=== PATIENT | male | born 1965 | race Two or more races ===

== ENCOUNTER 2021-01-22 19:00 | Emergency (ER) | payer SELFPAY ==
[2021-01-22] MEDS ORDERED: NAPROXEN500 MG PO (20:59)
== END 2021-01-22 22:05 | disposition home or self-care (01) ==
LOC: FER 19:00
DX: S46.912A Strain of unspecified muscle, fascia and tendon at shoulder and upper arm level, left arm, initial encounter (principal); X50.9XXA Other and unspecified overexertion or strenuous movements or postures, initial encounter
CPT/HCPCS: 73020; 96372; J1100; J1885

== ENCOUNTER 2021-01-27 21:05 | Emergency (ER) | payer OTHER ==
[~2021-01-27 21:05] MED LIST: NAPROXEN500 MG PO
[2021-01-28] MEDS ORDERED: ETODOLAC300 MG PO (00:05)
[2021-01-28] MEDS ORDERED: CYCLOBENZAPRINE10 MG PO (00:05)
[2021-01-28] MEDS ORDERED: NORCO 5-325 TA1 EACH PO (00:05)
== END 2021-01-28 00:49 | disposition home or self-care (01) ==
LOC: FER 21:05
DX: S46.012A Strain of muscle(s) and tendon(s) of the rotator cuff of left shoulder, initial encounter (principal); E11.9 Type 2 diabetes mellitus without complications; Z79.84 Long term (current) use of oral hypoglycemic drugs; X50.9XXA Other and unspecified overexertion or strenuous movements or postures, initial encounter
CPT/HCPCS: 96372; 99283; J1040; J1170; J1885